=== PATIENT | female | born 1990 | race Caucasian/White ===

== ENCOUNTER 2017-04-24 16:50 | Observation (INO) | payer BC, OTHER ==
[~2017-04-24 16:50] MED LIST: ISOVUE-370 76%-LOCM 1 ML ONE
[2017-04-24 17:40] LABS: #Basophils 0.2 thou/uL (0.0-0.2); #Eosinphils 1.6 thou/uL (0.0-0.7); #Lymphocytes 3.3 thou/uL (1.20-3.40); #Monocytes 0.9 thou/uL (0.11-0.59); #Neutrophils 9.3 thou/uL (1.40-6.50); %Basophils 1.5 % (0.0-1.0); %Eosinophils 10.6 % (0.0-10.0); %Lymphocytes 21.4 % (21.0-51.0); %Neutrophils 60.5 % (42.0-75.0); Hemoglobin 13.8 g/dL (12.0-16.0); Mean Corpuscular HGB CONC 32.7 g/dL (32.0-36.0); Mean Corpuscular Hemoglobin 27.2 pg (27.0-31.0); Mean Corpuscular Volume 83.2 fl (81.0-99.0); Mean Platelet Volume 6.6 fL (7.4-10.4); Platelet Count 477 thou/uL (130-400); RBC Distribution Width 12.8 % (11.5-14.5); Red Blood Cell (RBC) Count 5.09 mill/uL (4.20-5.40); White Blood Cell (WBC) Count 15.4 thou/uL (4.8-10.8)
[2017-04-24 17:47] LABS: BHCG - Serum Negative (NEGATIVE); Pregs Control Background? CLEAR/WHITE (CLR/WHITE); Pregs Control Bar Appear? YES (CONTROL BAR)
[2017-04-24 18:06] LABS: ALT (SGPT) 13 U/L (8-55); AST (SGOT) 11 U/L (5-34); Albumin 4.1 g/dL (3.5-5.0); Alkaline Phosphatase 87 U/L (40-150); Anion Gap 15 mmol/L (10-20); BUN (Urea Nitrogen) 8 mg/dL (7.0-18.7); Bilirubin, Total 0.3 mg/dL (0.2-1.2); Calc. Creatinine Clearance 0 mL/min (70-130); Calcium 9.4 mg/dL (7.8-10.44); Carbon Dioxide 16 mmol/L (22-29); Chloride 109 mmol/L (98-107); Estimated GFR-MDRD Greater than 90; Globulin 3.5 g/dL (2.4-3.5); Glucose 86 mg/dL (70-105); Lipase 14 U/L (8-78); Potassium 3.6 mmol/L (3.5-5.1); Protein, Total 7.6 g/dL (6.0-8.3); Sodium 136 mmol/L (136-145)
[2017-04-24] MEDS ORDERED: Ondansetron HCl/PF 4 MG/2 ML Vial ONE ×2 (18:07→21:01)
--- NOTE | 2017-04-24 18:44 | CT ---
CT ABDOMEN AND PELVIS WITH IV CONTRAST 04/24/17 HISTORY: Abdominal pain. FINDINGS: The lung bases are clear. The liver, spleen, kidneys, adrenal glands, and pancreas have a normal CT a ppearance. Nonspecific lymph nodes are scattered throughout the mesentery to the right lower quadrant . Urinary bladder is unremarkable. Lack of contrast limits evaluation of the bowel. No evidence of obstruction. Appendix is not inflamed . IMPRESSION: No significant abnormalities are demonstrated. POS: [facility]
[2017-04-24 19:09] LABS: Bilirubin Negative (Negative); Blood, Urine Moderate (Negative); Clarity CLEAR (Clear); Glucose, Urine (Dipstick) Negative (Negative); Leukocyte Small (Negative); Nitrite Negative (Negative); Protein, Urine (Dipstick) Negative (Neg-Trace)
[2017-04-24 19:14] LABS: Bacteria/HPF 1+ HPF (None Seen); Hyaline Casts/LPF 0-3 HYALINE CAST LPF (0-3 Hyaline); Pathc Cast-AUWi Flag 0.54 (0-2.49); RBC/HPF 21-50 HPF (0-3); Squamous Epithelial 0-3 HPF (0-3)
[2017-04-24] MEDS ORDERED: Morphine 5 MG/ML SYRINGE SLOW IVP PRN (22:29)
[2017-04-24] MEDS ORDERED: Ondansetron HCl/PF 4 MG/2 ML Vial IVP PRN (22:31)
[2017-04-24] MEDS ORDERED: Sodium Chloride 0.9% 1,000 ML IV SCH (22:31)
[2017-04-24] MEDS ORDERED: Ondansetron ODT 4 MG TAB SL PRN (22:31)
[2017-04-24 22:44] VITALS: BMI 33.5
[2017-04-25] MEDS ORDERED: Ondansetron HCl/PF 4 MG/2 ML Vial IVP PRN (01:41)
[2017-04-25] MEDS ORDERED: Acetaminophen 500 MG TAB PO PRN (01:41)
[2017-04-25] MEDS ORDERED: Ondansetron ODT 4 MG TAB PO PRN (01:41)
[2017-04-25] MEDS ORDERED: Dicyclomine 10 MG CAP PO PRN (01:41)
[2017-04-25] MEDS: Promethazine HCl 25 MG/ML VIAL IM/IV PRN ×3 (02:35→18:38)
[2017-04-25] MEDS: Sodium Chloride 0.9% 1,000 ML IV SCH ×3 (03:52→21:57)
--- NOTE | 2017-04-25 03:53 | HP ---
DATE OF ADMISSION: 04/25/2017 PRIMARY CARE PROVIDER: [facility]. CHIEF COMPLAINT: Abdominal pain with nausea and vomiting. HISTORY OF PRESENT ILLNESS: This is a 26-year-old who initially presented complaining of abdominal p ain with associated nausea and vomiting when attempting to eat any solid foods. The patient states s he has undergone extensive evaluation including colonoscopy and EGD as recently as late 03/2017 with negative findings. The patient was evaluated by Dr. Hernandez with [facility] with biop sies of various regions all returning negative pathology. The patient apparently underwent gallbladd er sonogram showing sludge with recommendations for HIDA scan within the next week. The patient also apparently was diagnosed with urinary tract infection, placed on oral antibiotics approximately 2 mo nths prior to this evaluation. 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 The patient believes the current stress in her life may be contributing to h er symptoms. The patient admits to having loose bowel movements approximately 3 times per day, but n o blood noted. No friends or family with similar symptoms. The patient states the pain is somewhat sharp after eating a meal in the lower abdominal area in the midline with some radiation to the right lower quadrant. The patient denied any documented fever or consistent use of NSAIDs. In the emerge ncy room, the patient underwent general evaluation including CT of the abdomen and pelvis showing neg ative findings. The patient received IV Rocephin, Zofran, morphine sulfate and intravenous normal sa line. The patient was transferred to the observation unit for evaluation. PAST MEDICAL HISTORY: Nausea and vomiting, unknown etiology. PAST SURGICAL HISTORY: Status post wisdom teeth extraction in 2017. PAST PSYCHIATRIC HISTORY: Positive for anxiety/depression on current medical therapy. CURRENT MEDICATIONS: 1. Pristiq 75 mg p.o. daily. 2. Dexilant 60 mg p.o. daily. 3. Bentyl 10 mg p.o. t.i.d. p.r.n. 4. Aubra-28 one tablet p.o. daily. ALLERGIES: CAFFEINE. No known drug allergies. FAMILY HISTORY: No inheritable diseases per patient report. 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 Originally from the [place] area. No current alcohol, tobacco or illicit drug use. REVIEW OF SYSTEMS: The following complete review of systems was negative, unless otherwise mentioned in the HPI or below: Constitutional: Weight loss or gain, ability to conduct usual activities. Skin: Rash, itching. Eyes: Double vision, pain. ENT/Mouth: Nose bleeding, neck stiffness, pain, tenderness. Cardiovascular: Palpitations, dyspnea on exertion, orthopnea. Respiratory: Shortness of breath, wheezing, cough, hemoptysis, fever or night sweats. Gastrointestinal: Poor appetite, abdominal pain, heartburn, nausea, vomiting, constipation, or diarr hea. Genitourinary: Urgency, frequency, dysuria, nocturia. Musculoskeletal: Pain, swelling. Neurologic/Psychiatric: Anxiety, depression. Allergy/Immunologic: Skin rash, bleeding tendency. Otherwise negative except as stated per HPI. PHYSICAL EXAMINATION: VITAL SIGNS: On admission, blood pressure 133/70, pulse 72, respiratory rate is 18, temperature 98.8 degrees Fahrenheit, O2 saturation 99% on room air. GENERAL APPEARANCE: This is a 26-year-old female, alert and oriented x3, pleasant, anxious appearing , in mild distress. HEENT: Pupils are equal, round, and reactive to light and accommodation. Extraocular muscles are in tact. No scleral icterus, no conjunctival injection. Nares patent. OP is clear. Teeth in fair rep air. NECK: Supple, no cervical adenopathy, no thyromegaly, no carotid bruits, no JVD appreciated. Cervic al spine with full active and passive range of motion. No meningeal signs appreciated. CHEST: Lungs are clear to auscultation bilaterally. CARDIOVASCULAR: S1, S2, without noted murmur. ABDOMEN: Rounded, soft, nontender, nondistended. Bowel sounds are positive in all four quadrants. There is no hepatosplenomegaly, no abdominal bruits, no rebound or guarding appreciated. EXTREMITIES: Warm and dry with fair turgor. No clubbing, cyanosis or asymmetric edema appreciated. Pulses palpable distally at the dorsalis pedis, posterior tibial, and popliteal arteries bilaterally . Capillary refill less than 2 seconds. NEUROLOGIC: Cranial nerves II-XII are grossly intact. No focal or lateralizing signs appreciated. PERTINENT LABORATORY DATA AND X-RAY FINDINGS: Sodium 136, potassium 3.6, chloride 109, CO2 of 16, BU N 8, creatinine 0.58, estimated GFR greater than 90, glucose 86, calcium 9.4. LFTs within normal armstrong its. Albumin 4.1, lipase 14. Serum beta hCG negative. CBC showed a white blood cell count of 15.4, hemoglobin 14, hematocrit 42, platelet count 477 with normal differential. Urinalysis dated 018 showed specific gravity of 1.050, positive ketones, moderate blood, small leukocyte esterase with 21-50 rbc's per high power field. CT of the abdomen and pelvis dated 04/24/2017 showed no acute pro cess. EKG dated 04/24/2017 by my interpretation showed sinus mechanism with heart rates in the 70s. Normal R-wave progression noted in the precordial leads. Normal axis. No acute ST-T wave changes a ppreciated. ASSESSMENT AND PLAN: 1. Abdominal pain, nonspecific. The patient was placed in observation status. We will continue gen eral supportive measures. CT of the abdomen and pelvis unrevealing. Recent EGD and colonoscopy nega tive. Continue supportive measures. Outpatient HIDA scan recommended. 2. Nausea and vomiting, etiology unclear. Suspect component of anxiety/stress reaction. We will in itiate trial of Phenergan 12.5 mg IV q.6 hours. 3. Depression/anxiety. We will continue home regimen of Pristiq 75 mg p.o. daily. 4. Question of urinary tract infection. Continue Rocephin 1 gram IV q.24 hours. 5. Dehydration. Continue intravenous normal saline 100 mL per hour. Encourage increased free water intake p.o. 6. Prophylaxis. Sequential compression devices while in bed. Pepcid 20 mg p.o. b.i.d. 7. Code status is FULL. Surrogate medical decision maker is Jazz Salas.
[2017-04-25 05:26] LABS: Anion Gap 11 mmol/L (10-20); BUN (Urea Nitrogen) 6 mg/dL (7.0-18.7); Calc. Creatinine Clearance 159 mL/min (70-130); Calcium 8.5 mg/dL (7.8-10.44); Carbon Dioxide 19 mmol/L (22-29); Chloride 111 mmol/L (98-107); Estimated GFR-MDRD Greater than 90; Glucose 95 mg/dL (70-105); Potassium 3.2 mmol/L (3.5-5.1); Sodium 138 mmol/L (136-145)
[2017-04-25 05:56] LABS: Band 3 % (5-11); Eosinophils 9 % (0-10); Hemoglobin 12.5 g/dL (12.0-16.0); Lymphocytes 30 % (21-51); MDiff Complete? YES; Mean Corpuscular HGB CONC 34.4 g/dL (32.0-36.0); Mean Corpuscular Hemoglobin 27.9 pg (27.0-31.0); Mean Corpuscular Volume 81.1 fl (81.0-99.0); Mean Platelet Volume 6.6 fL (7.4-10.4); Monocytes 2 % (0-10); Neutrophil 56 % (42-75); Platelet Count 418 thou/uL (130-400); RBC Distribution Width 12.7 % (11.5-14.5); Red Blood Cell (RBC) Count 4.48 mill/uL (4.20-5.40); White Blood Cell (WBC) Count 12.3 thou/uL (4.8-10.8)
[2017-04-25] MEDS: Desvenlafaxine Succinate [Pristiq] 25 MG PO SCH (08:45)
[2017-04-25] MEDS: Famotidine 20 MG TAB PO SCH ×2 (08:45→20:13)
[2017-04-25] MEDS: Desvenlafaxine Succinate [Pristiq] 50 MG PO SCH (08:46)
[2017-04-25] MEDS ORDERED: cefTRIAXone\\ROCEPHIN 1 GM in Sodium Chloride 0.9% 100 ML IVPB SCH (09:00)
[2017-04-25] MEDS: cefTRIAXone\\ROCEPHIN 1 GM, Syringe 0.4 ML in Sterile Water 9.6 ML SLOW IVP SCH (09:04)
[2017-04-25] MEDS: LEVONORGESTREL ETHIN ESTRADIOL PO SCH ×2 (09:04→20:12)
--- NOTE | 2017-04-25 18:43 | NM ---
HEPATOBILIARY SCAN 04/25/17 HISTORY: Right sided abdominal pain. TECHNIQUE: Following the intravenous administration of 4.9 millicuries technetium 99m labeled Mebrofenin, anteri or planar imaging is obtained over 60 minutes. Upon visualization of the gallbladder, 1.5 micrograms of CCK analog injected to calculate the gallbladder ejection fraction. FINDINGS: There is prompt radiotracer activity within the liver on post injection imaging. The gallbladder is s een by approximately 15 minutes. The gallbladder ejection fraction is calculated at 34%, borderline low as normal is 35% or greater. IMPRESSION: Scintigraphic evidence of cystic duct patency. Borderline low gallbladder ejection fraction of 34% as above. POS: [facility]
[2017-04-25] MEDS ORDERED: Morphine 5 MG/ML SYRINGE SLOW IVP PRN (18:47)
[2017-04-25] MEDS: Potassium Chloride 20 MEQ TAB PO SCH ×2 (20:12→23:15)
--- NOTE | 2017-04-25 21:07 | PDOC.PN ---
- Subjective Encounter Start Date: 04/25/17 Encounter Start Time: 21:06 - Objective Resuscitation Status: Resuscitation Status FULL:Full Resuscitation Vital Signs & Weight: Vital Signs (12 hours) Temp Pulse Resp BP BP Pulse Ox 04/25/17 20:15 98.1 F 71 20 04/25/17 19:04 98.1 F 71 20 121/74 94 L 04/25/17 18:10 98.5 F 64 16 118/60 98 04/25/17 16:50 98.6 F 67 16 110/56 L 97 04/25/17 11:06 98.4 F 60 16 123/72 98 Weight Admit Weight 155 lb 3.2 oz Weight 155 lb 3.2 oz I&O: 04/24/17 04/25/17 04/26/17 06:59 06:59 06:59 Intake Total 411 940 Output Total 200 500 Balance 211 440 Result Diagrams: 04/25/17 04:24 04/25/17 04:24 Dx/Plan (1) Abdominal pain Code(s): R10.9 - UNSPECIFIED ABDOMINAL PAIN Status: Acute (2) Hypokalemia Code(s): E87.6 - HYPOKALEMIA Status: Acute - Plan replete potassium * .
--- NOTE | 2017-04-25 23:13 | CON ---
DATE OF CONSULTATION: 04/25/2017 HISTORY OF PRESENT ILLNESS: Ms. 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 For a couple of months now, she has been having abdominal problems with abdominal pa in on the right side, sometimes it is right upper quadrant, sometimes it is right lower quadrant, oth er time just right below the side of the umbilicus. Initially began at the last fall, she thought ma ybe it was stress. She also thought maybe interaction between her control implant in her arm a nd her antidepressants. Her changes were made in antidepressants and her depression issues stabilize d, but the GI symptoms persisted. Sometime around the A[place] break, she became ill with coughing and a URI and then ultimately began to have more nausea and vomiting at times. Her primary physician at [facility] thought maybe this was related to reflux and she was placed on a PPI for a t jevon, she did improve. However, in the past month or so, she had more issues with vomiting after eati ng, more problems with pain on the right side of the abdomen after eating and alternating diarrhea an d constipation. Part of this as well as she has been treated for different bladder infections with an tibiotics several times. Ultimately, she underwent upper and lower endoscopies about a week or two a go in our office, which were both normal. The terminal ileum was not visualized, but there were no s igns of Crohn's or colitis, esophagitis, ulcers or duodenitis. Her labs have been normal. She was g oing to get a HIDA scan in the outpatient setting apparently, but she presented to the emergency room last night as she felt she just was not getting better and she was getting to her end. She came wit h complaints of some loose stools and also the abdominal pain. In the emergency room, she had evalua tion with a CAT scan with IV contrast only, which was read as normal. She also had labs with a white count of 15.4, hemoglobin 13.8, platelet count of 477. A comp met profile was normal. Negative pre gnancy test and a normal lipase and urinalysis showed 4-6 white blood cells with 1+ bacteria. Blood cultures have been negative thus far. Presently, she states she feels a little bit better, but still has some pain, occasional fluttering in the right upper quadrant. REVIEW OF SYSTEMS: Notable for arthritis in her hands. Negative for rash. Negative for ulcers, but positive for weight loss of 10 pounds. Negative for dysuria, frequency, or urgency. PAST MEDICAL HISTORY: Depression, anxiety. PAST SURGICAL HISTORY: [place] tooth surgery. HOME MEDICATIONS: Pristiq 75 mg a day, Dexilant 60 mg a day, Bentyl, Aubra control pills. Medications here in the hospital, Rocephin, Bentyl, Pepcid, Zofran, and Protonix. ALLERGIES: CAFFEINE, none to drugs. FAMILY HISTORY: Grandfather had colorectal cancer at advanced age. Sister had some what sounds like IBS, and another sister had gallbladder issues. She does not drink, smoke or use drugs. PHYSICAL EXAMINATION: GENERAL: The patient is sitting comfortably in bed. She has got a friend in the room with her. Her fiance is out, taking care of the dog. She is in no distress. She is a very pleasant to talk to. VITAL SIGNS: Temperature is 98.4, pulse 60, blood pressure 123/72, respirations 16. HEENT: Oropharynx without lesions. NECK: Supple. LUNGS: Clear. HEART: Regular rate and rhythm without clicks or murmurs. ABDOMEN: Soft. There is mild tenderness diffusely with no rebound, no guarding. There was a small protuberant. Bowel sounds are positive. There is no shifting dullness or fluid wave. SKIN: Skin is without overt lesions. ASSESSMENT: Abdominal pain of unclear etiology, worsening over the past several months, again referr ed to our office with upper and lower endoscopies recently, which were negative. Now, she [facility], admitted with worsening symptoms, which include nausea, occasional vomiting, and right-si ded abdominal pain. She has had normal ultrasounds at [facility] and a normal CAT scan last night, but n o oral contrast given and recent normal upper and lower endoscopies. The only thing different this a dmission is that her white count was 15,000 and she had slight thrombocytosis. PLAN: At this time, I agree with IV fluids. We will go ahead and proceed with a HIDA scan, which wa s planned in the outpatient setting. If this is negative, may consider a small bowel x-ray to rule o ut any type of small bowel Crohn's. We will continue IV fluids. We will follow along with you hugh hines this hospitalization.
[2017-04-26] MEDS: cefTRIAXone\\ROCEPHIN 1 GM, Syringe 0.4 ML in Sterile Water 9.6 ML SLOW IVP SCH (09:51)
[2017-04-26] MEDS: Famotidine 20 MG TAB PO SCH (09:51)
[2017-04-26] MEDS: Desvenlafaxine Succinate [Pristiq] 50 MG PO SCH (09:51)
[2017-04-26] MEDS: Desvenlafaxine Succinate [Pristiq] 25 MG PO SCH (09:51)
[2017-04-26] MEDS: LEVONORGESTREL ETHIN ESTRADIOL PO SCH ×2 (09:52→20:08)
[2017-04-26] MEDS: Sodium Chloride 0.9% 1,000 ML IV SCH ×2 (11:43→20:55)
--- NOTE | 2017-04-26 13:18 | PDOC.PN ---
- Subjective Encounter Start Date: 04/26/17 Encounter Start Time: 13:16 Subjective: Seen and examined c/o severe abdominal pain - Objective Resuscitation Status: Resuscitation Status FULL:Full Resuscitation Vital Signs & Weight: Vital Signs (12 hours) Temp Pulse Resp BP Pulse Ox 04/26/17 11:28 98.6 F 73 16 119/69 97 04/26/17 10:38 98.3 F 84 16 04/26/17 07:30 98.3 F 84 16 103/60 95 04/26/17 03:29 98.4 F 73 16 108/62 98 Weight Admit Weight 155 lb 3.2 oz Weight 150 lb 3.2 oz I&O: 04/25/17 04/26/17 04/27/17 06:59 06:59 06:59 Intake Total 411 940 Output Total 200 500 Balance 211 440 Result Diagrams: 04/25/17 04:24 04/25/17 04:24 Phys Exam - Physical Examination Constitutional: NAD HEENT: PERRLA, moist MMs, sclera anicteric, TM's clear Neck: no nodes, no JVD, supple, full ROM Respiratory: no wheezing, no rales, no rhonchi, wheezing present, clear to auscultation bilateral Cardiovascular: RRR, no significant murmur, no rub Gastrointestinal: positive bowel sounds tender Dx/Plan (1) Abdominal pain Code(s): R10.9 - UNSPECIFIED ABDOMINAL PAIN Status: Acute (2) Hypokalemia Code(s): E87.6 - HYPOKALEMIA Status: Acute (3) Cholecystitis Code(s): K81.9 - CHOLECYSTITIS, UNSPECIFIED Status: Acute - Plan cont current plan of care, plan discussed w/ family, continue antibiotics GI following--will consult surgery for possible cholecystectomy * .
--- NOTE | 2017-04-26 13:26 | EKG ---
Test Reason : Blood Pressure : / mmHG Vent. Rate : 071 BPM Atrial Rate : 071 BPM P-R Int : 150 ms QRS Dur : 082 ms QT Int : 406 ms P-R-T Axes : 060 014 020 degrees QTc Int : 441 ms Normal sinus rhythm with sinus arrhythmia Normal ECG Confirmed by MILO BURGESS, ALISA ([id number]), legal editor GARCIA CURTIS ([id number]) on 04/26/2017 1:25:52 PM Referred By: Confirmed By:ALISA PEDRAZA MD
[2017-04-26] MEDS ORDERED: Morphine 5 MG/ML SYRINGE SLOW IVP SCH ×2 (13:45)
[2017-04-26] MEDS ORDERED: Lorazepam 2 MG/ML VIAL SLOW IVP SCH (16:45)
[2017-04-26] MEDS: chlordiazePOXIDE/Clidinium Bromide Capsule PO SCH ×2 (17:19→20:08)
--- NOTE | 2017-04-26 18:42 | PRG ---
DATE OF SERVICE: 04/26/2017 SUBJECTIVE: Ms. Miguel continues to have pain in the right upper quadrant. She states that when she did the HIDA scan, she had the exact same pain in the right upper abdomen. OBJECTIVE: VITAL SIGNS: Temperature is 98.6, pulse 73 and blood pressure is 119/69. GENERAL: She is tearful. HEENT: Oropharynx without lesions. NECK: Supple. HEART: Regular rate and rhythm. ABDOMEN: Notable for mild tenderness in the right upper quadrant without rebound or guarding. Lower abdomen is nontender. LABORATORY AND IMAGING DATA: White count is 12.3, hemoglobin is 12.5 and platelet count is 418. Linda ctrolytes normal with a potassium of 3.2. test negative. HIDA scan, cystic duct is patent , borderline low ejection fraction of 34%. This is just 1 percentage point lower than normal 35%, bu t she had exact reproduction of symptoms. ASSESSMENT: Persistent abdominal pain. Mostly, this has been in the right upper quadrant and at felisha es, been in the right lower. She had a normal esophagogastroduodenoscopy and colonoscopy with Dr. Shaheen garcia recently. She does have quite a bit of stress and anxiety, is on both antidepressants and oral c ontraceptives. Some medications or functional bowel disorder could be at play. She has had a CAT sc an at this admission, which was negative with no signs of inflammatory bowel disease or intra-abdomin al infection; however, there was no oral contrast given at that study. There was nonspecific lymphad enopathy in the mesentery, mostly in the right lower quadrant, so mesenteric adenitis or appendicitis could be a consideration as well. DIFFERENTIAL DIAGNOSES: Functional bowel disorder, biliary dyskinesia, appendiceal disease and mesen teric adenitis. PLAN: With a white count and worsening pain, we will ask General Surgery to evaluate the patient. I f they do not feel surgery is warranted at this time, at least her CAT scan with oral contrast probab ly in the form of CT enterography. However, with her symptoms of today corresponding to that which s he has had with the HIDA scan and pain that she has had in the past. I think a surgical evaluation i s reasonable.
[2017-04-26] MEDS ORDERED: Milk Of Magnesia 30 ML UDCUP PO PRN (18:46)
[2017-04-26] MEDS: Promethazine HCl 25 MG/ML VIAL IM/IV PRN (21:39)
[2017-04-26] MEDS ORDERED: CEFAZOLIN 1 GM, Syringe 2.5 ML in Sterile Water 7.5 ML SLOW IVP SCH (21:45)
[2017-04-27] MEDS ORDERED: Glycopyrrolate 0.2 MG/ML 5 ML SYRINGE ONE (07:05)
[2017-04-27] MEDS ORDERED: Dexamethasone 20 MG/5 ML VIAL ONE (07:05)
[2017-04-27] MEDS ORDERED: Ondansetron HCl/PF 4 MG/2 ML Vial ONE (07:05)
[2017-04-27] MEDS ORDERED: Lidocaine 1% PF 5 ML VIAL ONE (07:05)
[2017-04-27] MEDS ORDERED: PROPOFOL 200 MG/20 ML VIAL ONE (07:05)
[2017-04-27] MEDS ORDERED: Ketorolac Tromethamine 30 MG/ML VIAL ONE (07:05)
[2017-04-27] MEDS ORDERED: Fentanyl 250 MCG/5 ML VIAL ONE ×2 (07:42→09:35)
[2017-04-27] MEDS ORDERED: Midazolam HCl 2 mg/2 ml Vial ONE (07:42)
[2017-04-27] MEDS ORDERED: CEFAZOLIN/Water 2 GM/20 ML SYRINGE ONE (07:53)
[2017-04-27] MEDS ORDERED: Bupivacaine/Epinephrine 0.25% 30 ML VIAL ONE (08:10)
[2017-04-27] MEDS ORDERED: HYDROmorphone 0.5 MG/0.5 ML SYRINGE ONE (08:38)
[2017-04-27] MEDS ORDERED: Ondansetron HCl/PF 4 MG/2 ML Vial IVP PRN (08:51)
[2017-04-27] MEDS ORDERED: Promethazine HCl 25 MG/ML VIAL SLOW IVP PRN (08:51)
[2017-04-27] MEDS ORDERED: Promethazine HCl 25 MG/ML VIAL IM PRN (08:51)
[2017-04-27] MEDS: Desvenlafaxine Succinate [Pristiq] 25 MG PO SCH (10:44)
[2017-04-27] MEDS: chlordiazePOXIDE/Clidinium Bromide Capsule PO SCH ×4 (10:45→19:44)
[2017-04-27] MEDS: cefTRIAXone\\ROCEPHIN 1 GM, Syringe 0.4 ML in Sterile Water 9.6 ML SLOW IVP SCH (10:47)
[2017-04-27] MEDS: Sodium Chloride 0.9% 1,000 ML IV SCH (10:47)
[2017-04-27] MEDS: Desvenlafaxine Succinate [Pristiq] 50 MG PO SCH (10:50)
[2017-04-27] MEDS: LEVONORGESTREL ETHIN ESTRADIOL PO SCH ×2 (10:51→19:45)
[2017-04-27] MEDS ORDERED: HYDROcodone/Acetaminophen 5/325 mg Tablet PO PRN (11:04)
[2017-04-27] MEDS ORDERED: Promethazine 25 MG TAB PO PRN (11:06)
--- NOTE | 2017-04-27 13:11 | PRG ---
DATE OF SERVICE: 04/27/2017 SUBJECTIVE: Ms. Miguel had a cholecystectomy yesterday. Operative report is not yet available. OBJECTIVE: VITAL SIGNS: Temperature is 98, pulse 85-107, respirations 16 and blood pressure 125/63. ABDOMEN: Mildly tender from surgery, but right lower quadrant tenderness is nonexistent. LABORATORY STUDIES: None today. ASSESSMENT AND PLAN: Status post cholecystectomy for biliary dyskinesia and persistent right upper q uadrant pain and reproduction of symptoms on HIDA scan. Discharge either later today or tomorrow dep ending on clinical course per General Surgery. She can follow up in our office in 1-2 weeks. We layla l continue to follow if she remains in the hospital or other issues arise or if her pain does not go away.
--- NOTE | 2017-04-27 13:40 | PDOC.PN ---
- Subjective Encounter Start Date: 04/27/17 Encounter Start Time: 15:02 - Objective Resuscitation Status: Resuscitation Status FULL:Full Resuscitation Vital Signs & Weight: Vital Signs (12 hours) Temp Pulse Resp BP BP Pulse Ox 04/27/17 11:36 107 H 20 126/70 98 04/27/17 10:06 98.0 F 107 H 16 125/63 99 04/27/17 04:00 98.2 F 85 22 H 148/74 H 100 Weight Admit Weight 155 lb 3.2 oz Weight 150 lb 3.2 oz I&O: 04/26/17 04/27/17 04/28/17 06:59 06:59 06:59 Intake Total 940 820 400 Output Total 500 1300 450 Balance 440 -480 -50 Result Diagrams: 04/25/17 04:24 04/25/17 04:24 Dx/Plan - Plan * . 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 will dc dc summary dictated [id number]
--- NOTE | 2017-04-27 14:03 | CON ---
DATE OF CONSULTATION: 04/27/2017 CHIEF COMPLAINT: Abdominal pain, nausea, and vomiting. 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 She underwent a workup including EGD and colonoscopy which were unremarkable. She was diagnosed with and has been treated for UTI with oral antibiotic. She came into the hospital because the abdominal pain, nausea, and vomiting were getting worse. She states that whenever she tries to eat or even drink anything, she will have pain in the right upper quadrant which then radiates down into her lower abdomen and then the pain causes her to become nauseated and she throws everything up. She states that usually she is able to keep broth down, but recently she has not even been able to keep that down. She also reports that she has a history of ovarian cyst. She is on control to try to regulate her periods, but even on the control, she will have episodes of severe lower abdominal cramping, which she attributes to her ovarian cyst. She had a gallbladder ultrasound done as an outpatient which by report showed sludge, but no stones. When she came to the hospital, she underwent a CT of the abdomen and pelvis which did not show any acute findings. She had nonspecific lymph nodes noted in the right lower quadrant mesentery, but these are not pathologic in appearance. The appendix was normal as were the kidneys and ureters. No renal stones were seen. She was admitted for observation and evaluation. She did undergo a HIDA scan with slightly low ejection fraction of 34%. The patient states that when she was administered the CCK for HIDA scan, it exactly reproduced her symptoms with severe right upper quadrant pain and nausea. She has had some loose stools, but no blood or black coloration to her stools. Blood cultures have been negative. Repeat UA on admission did show 1+ bacteria with 21-50 red cells and 4-6 white cells, so she was empirically started on antibiotics for UTI. PAST MEDICAL HISTORY: Ovarian cyst. PAST SURGICAL HISTORY: None. OUTPATIENT MEDICATIONS: Bentyl and oral contraceptives. ALLERGIES: She reports an allergy to CAFFEINE, which causes her tongue and throat to swell. FAMILY HISTORY: None. SOCIAL HISTORY: The patient does not smoke, drink or use illicit drugs. 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 REVIEW OF SYSTEMS: Ten system review of systems is negative except stated per HPI. PHYSICAL EXAMINATION: VITAL SIGNS: Patient is afebrile through her hospital stay. Heart rate 93, respirations 20, 98% saturated on room air, blood pressure 131/66. GENERAL: Reveals somewhat anxious, but healthy appearing young woman in no acute distress. She is not flushed or toxic in appearance. She is not jaundiced or icteric. HEENT: Unremarkable. NECK: Supple without lymphadenopathy or thyroid nodules. HEART: Regular in its rate and rhythm without murmurs, rubs or gallops. LUNGS: Clear to auscultation bilaterally. ABDOMEN: Soft and nondistended. She is tender to palpation in the right upper quadrant. Otherwise nontender. No palpable masses or hernias. She does not exhibit rigidity, rebound or guarding. EXTREMITIES: Warm and well perfused without edema. NEUROLOGIC: No focal deficits. PSYCHIATRIC: Alert, oriented, and appropriate. LABORATORY DATA AND IMAGING: As per HPI. ASSESSMENT: Biliary dyskinesia and chronic cholecystitis. I have recommended laparoscopic cholecystectomy for symptomatic relief. LFTs are normal and bile duct looks normal on CT so I do not believe cholangiogram is indicated as this is likely acalculous disease. Other etiologies for her are possible including sphincter of Oddi dysfunction, although this is less likely. In addition, she appears to have intermittent pelvic pain which is likely unrelated and this could be due to ovarian cyst although no significant ovarian pathology was seen on noncontrast CT. Other potential etiologies include endometriosis or interstitial cystitis. I advised the patient that this pain is unlikely to improve after laparoscopic appendectomy. PROCEDURE: Laparoscopic cholecystectomy was discussed in detail with the patient. Inherent risks of the procedure were also discussed. These include, but are not limited to bleeding, infection, risks of anesthesia, damage to nearby structures including bowel, liver and bile duct, need for open surgery, need for other operations. She understands and accepts these risks and wishes to proceed. I have put her on the OR schedule for tomorrow, all her questions were answered. She is already on ceftriaxone for presumed UTI. I have ordered Ancef for additional skin prophylaxis. GRANT
[2017-04-27 15:33] LABS: Anion Gap 18 mmol/L (10-20); BUN (Urea Nitrogen) 4 mg/dL (7.0-18.7); Calc. Creatinine Clearance 130 mL/min (70-130); Calcium 9.3 mg/dL (7.8-10.44); Carbon Dioxide 14 mmol/L (22-29); Chloride 106 mmol/L (98-107); Estimated GFR-MDRD Greater than 90; Glucose 192 mg/dL (70-105); Potassium 3.9 mmol/L (3.5-5.1); Sodium 134 mmol/L (136-145)
[2017-04-27] MEDS ORDERED: Lorazepam 0.5 MG TAB PO PRN (16:10)
[2017-04-27 16:17] LABS: Lactic Acid 3.8 mmol/L (0.5-2.2)
[2017-04-27] MEDS: HYDROcodone/Acetaminophen 5/325 mg Tablet PO PRN ×2 (16:32→21:42)
[2017-04-27] MEDS: Sodium Bicarbonate 150 MEQ in Sterile Water Injection 1,000 ML IV SCH (16:58)
[2017-04-27 21:22] LABS: Anion Gap 17 mmol/L (10-20); BUN (Urea Nitrogen) 5 mg/dL (7.0-18.7); Calc. Creatinine Clearance 134 mL/min (70-130); Calcium 9.8 mg/dL (7.8-10.44); Carbon Dioxide 16 mmol/L (22-29); Chloride 105 mmol/L (98-107); Estimated GFR-MDRD Greater than 90; Glucose 132 mg/dL (70-105); Sodium 134 mmol/L (136-145)
[2017-04-28] MEDS: HYDROcodone/Acetaminophen 5/325 mg Tablet PO PRN ×2 (04:49→10:23)
[2017-04-28 05:19] LABS: Anion Gap 17 mmol/L (10-20); BUN (Urea Nitrogen) 7 mg/dL (7.0-18.7); Calc. Creatinine Clearance 145 mL/min (70-130); Calcium 9.7 mg/dL (7.8-10.44); Carbon Dioxide 16 mmol/L (22-29); Chloride 105 mmol/L (98-107); Estimated GFR-MDRD Greater than 90; Glucose 99 mg/dL (70-105); Potassium 3.6 mmol/L (3.5-5.1); Sodium 134 mmol/L (136-145)
--- NOTE | 2017-04-28 06:03 | DIS ---
DATE OF ADMISSION: 04/24/2017 DATE OF DISCHARGE: 04/27/2017 DISCHARGE DIAGNOSES: 1. Status post laparoscopic cholecystectomy. 2. Abdominal pain. 3. Biliary dyskinesia. 4. Leukocytosis, improving. 5. Hypokalemia, replace. DISCHARGE MEDICATION: See med rec form. HISTORY OF PRESENT ILLNESS: See initial HPI. CONSULTANTS DURING THE HOSPITAL STAY: 1. General Surgery. 2. GI. PROCEDURES DURING THE HOSPITAL STAY: Cholecystectomy. HOSPITAL COURSE: The patient is a 26-year-old female. 1. Abdominal pain + Biliary dyskinesia. The patient was seen by General Surgery and GI during the hospital stay. The patient had a laparoscopic cholecystectomy done. The patient was tolerating diet at the time of discharge. The patient was advised to follow with GI and General Surgery as recommended as an outpatient. 2. Abdominal pain. The patient has abdominal pain, which improved at the time of discharge. 3. History of gastroesophageal reflux disease. The patient was advised to continue PPI at the time of discharge. PHYSICAL EXAMINATION: VITAL SIGNS: On the day of discharge, vital signs are stable. Blood pressure is 106/70, temperature 98, heart rate 107, respiratory rate 20. GENERAL: The patient appears comfortable. HEENT: Pupils equal, round, and reactive. ENT patent. Nose normal. NECK: Supple, no JVD. CARDIOVASCULAR: S1, S2 present. Regular rate and rhythm. RESPIRATORY: No wheezing, no rhonchi. GASTROINTESTINAL: Mild tender to palpate. No guarding, no rebound tenderness. MUSCULOSKELETAL: No edema. PSYCHIATRIC: Mood appropriate at this time. The patient is stable at the time of discharge. DISCHARGE CONDITION: Stable. DISPOSITION: Home. The patient had low potassium, so repeat labs were ordered. If repeat BMP is stable, the patient will be discharged home. GRANT
[2017-04-28 08:00] VITALS: BP 123/67; TEMP 98.2
[2017-04-28] MEDS: chlordiazePOXIDE/Clidinium Bromide Capsule PO SCH (08:06)
[2017-04-28] MEDS: Desvenlafaxine Succinate [Pristiq] 25 MG PO SCH (08:07)
[2017-04-28] MEDS: Desvenlafaxine Succinate [Pristiq] 50 MG PO SCH (08:07)
[2017-04-28] MEDS: LEVONORGESTREL ETHIN ESTRADIOL PO SCH (08:09)
[2017-04-28] MEDS: cefTRIAXone\\ROCEPHIN 1 GM, Syringe 0.4 ML in Sterile Water 9.6 ML SLOW IVP SCH (08:36)
[2017-04-28] MEDS: Sodium Bicarbonate 150 MEQ in Sterile Water Injection 1,000 ML IV SCH (09:42)
--- NOTE | 2017-04-28 10:46 | ADD-DIS ---
HOSPITAL COURSE: The patient was held on discharge due to metabolic acidosis receiving sodium bicarb carol infusion for approximately 24 hours. The patient's overall CO2 level remained clinically stabl e, ranging from 14 to 19. The patient was tolerating regular oral intake, ambulating without assista nce or difficulty and remaining afebrile status post laparoscopic cholecystectomy. The patient overa ll with adequate pain control and stable vital signs at the time of discharge. The patient ready for discharge on 04/28/2017. The patient will be discharged on Omnicef 300 mg p.o. b.i.d. x3 days in addition to previously dictat ed discharge medications. The patient overall stable and ready for discharge. Please see discharge summary dated 04/27/2017 fo r full details of patient's hospital course.
--- NOTE | 2017-04-28 13:00 | PRG ---
DATE OF SERVICE: 04/28/2017 SUBJECTIVE: Ms. Miguel is feeling well today. She had a laparoscopic cholecystectomy yesterday. She feels much better. She is going to go home. PHYSICAL EXAMINATION: VITAL SIGNS: Stable. ABDOMEN: Soft, nontender. LABORATORY DATA: Basic metabolic profile normal. ASSESSMENT AND PLAN: Status post cholecystectomy for biliary dyskinesia, reproducible pain on HIDA s can. She feels much better today. She is going to go home today and [facility]
--- NOTE | 2017-04-29 15:17 | OP ---
DATE OF PROCEDURE: 04/27/2017 PROCEDURE: Laparoscopic cholecystectomy. PREOPERATIVE DIAGNOSES: Biliary dyskinesia. POSTOPERATIVE DIAGNOSES: Biliary dyskinesia and chronic cholecystitis. HISTORY: Mr. Miguel is a 26-year-old woman with a longstanding history of postprandial nausea and abdominal pain, and she has undergone extensive workup including imaging with CT, EGD, and gallbladd er ultrasound, none of which showed any abnormalities. She underwent a HIDA scan during [facility] for a severe bout of her symptoms and the ejection fraction was low normal; however, she had exac t reproduction of her symptoms during the ejection fraction portion of the exam, so it was felt that her symptoms might be related to severe biliary dyskinesia, so recommendation was made to proceed wit h laparoscopic cholecystectomy. DESCRIPTION OF PROCEDURE: After informed consent was obtained and appropriate preoperative antibioti cs administered, the patient was taken to the operating room. She was placed in the supine position and general endotracheal anesthesia was administered. She was prepped and draped in a standard steri le fashion and local anesthesia infused to the skin and subcutaneous tissues at the level of the umbi licus. A transverse skin incision was made. The fascia was elevated and Veress needle was placed in to the abdominal cavity without difficulty. Opening pressure was less than 5 and carbon dioxide gas easily insufflated to an intra-abdominal pressure of 15, which the patient tolerated well. Veress ne edle was withdrawn and a [place] port advanced under direct vision into the abdominal cavity which was carefully examined. There is no evidence of Veress needle or of trocar injury. The gallbladder was noted to be very distended in appearance, but otherwise normal. Local anesthesia was infused to the skin and subcutaneous tissues at the epigastric, right upper quadrant, and right lateral abdomina l sites. Skin incisions were made and trocars were placed under direct laparoscopic vision. The dis tended gallbladder was grasped and retracted superiorly. The infundibulum was identified, grasped, a nd withdrawn laterally. The serosa was stripped inferiorly at the level of the neck of the gallbladd er and the cystic duct and artery identified, dissected free circumferentially and traced to their in sertion in the gallbladder. A critical view of safety was obtained and the cystic duct and artery we re clipped and divided between clips. The gallbladder was then dissected free of the gallbladder bed using hook electrocautery. Prior to complete removal of the gallbladder from the gallbladder bed, t area of the cystic duct and artery stumps was examined and the clips were in good position across both of these structures and there was no bleeding and no leakage of bile. The gallbladder was remov ed from the gallbladder bed, placed into an EndoCatch bag and drawn out through the epigastric incisi on. The epigastric trocar was replaced and the operative site examined. Hemostasis was verified. D ue to the thin wall nature of the gallbladder, some bile had been spilled during the case, but this w as all able to be suctioned out and no stones were seen to have spilled from the gallbladder. The op erative site was easily irrigated to clear. Hemostasis was again verified and the epigastric trocar removed and the fascia closed under direct laparoscopic vision using a GraNee needle. The right uppe r quadrant and right lateral trocar sites were then examined as the trocars were removed and hemostas is was verified at these sites. Carbon dioxide gas was then allowed to desufflate through the umbili momo trocar which was then removed. Additional local anesthesia was infused for postoperative pain co ntrol and the skin incisions were all closed with 4-0 subcuticular Monocryl suture. Estimated blood loss was minimal. There were no complications. SPECIMEN: Gallbladder.
== END 2017-04-28 10:44 | disposition home or self-care (01) ==
LOC: ERS 16:50 → 2SW 22:25
PROVIDERS: ADMIT Family Medicine; ATTEND Family Medicine
PROC: 0FT44ZZ Resection of Gallbladder, Percutaneous Endoscopic Approach (ICD-10-PCS; principal; 2017-04-27)
DX: K81.2 Acute cholecystitis with chronic cholecystitis (principal); E87.2 Acidosis; D72.829 Elevated white blood cell count, unspecified; E87.6 Hypokalemia; K21.9 Gastro-esophageal reflux disease without esophagitis; N39.0 Urinary tract infection, site not specified; K82.8 Other specified diseases of gallbladder; F41.8 Other specified anxiety disorders; E86.0 Dehydration; Z91.048 Other nonmedicinal substance allergy status; Z79.3 Long term (current) use of hormonal contraceptives; Z79.899 Other long term (current) drug therapy; Z80.0 Family history of malignant neoplasm of digestive organs
CPT/HCPCS: 36415; 74177; 78227; 80048; 80053; 81003; 81015; 83605; 83690; 84703; 85007; 85025; 85027; 87040; 88304; 93005; 96361; 96365; 96366; 96374; 96375; 96376; J2270; A4216; A4217; A9537; G0378; J0696; J1100; J1170; J1885; J2001; J2060; J2250; J2405; J2550; J2704; J3010; Q0162